=== PATIENT | male | born 1995 ===

== ENCOUNTER 2017-04-17 04:20 | Emergency (ER) | payer SELFPAY ==
[2017-04-17] MEDS ORDERED: Lidocaine 1% w/Epinephrine 1:100K 20 ML VIAL ONE (06:55)
== END 2017-04-17 08:54 | disposition home or self-care (01) ==
LOC: ERS 04:20
DX: S01.81XA Laceration without foreign body of other part of head, initial encounter (principal); F10.129 Alcohol abuse with intoxication, unspecified; F17.210 Nicotine dependence, cigarettes, uncomplicated; Y00.XXXA Assault by blunt object, initial encounter
CPT/HCPCS: 12013; J2001